=== PATIENT | male | born 1965 | race American Indian/Alaskan Native ===

== ENCOUNTER 2019-09-19 10:10 | Emergency (ER) | payer SELFPAY ==
[2019-09-19 10:17] VITALS: BP 146/95
--- NOTE | 2019-09-19 10:54 | XRay Report ---
RIGHT HAND, 3 VIEWS INDICATION: Hand injury, right third digit pain after injury last week. COMPARISON: None. IMPRESSION: There is mild soft tissue swelling of the third digit. Chronic posttraumatic or degenera tive changes are noted at the PIP joint of the third digit. No convincing acute fracture is identifie d. The remaining bones of the right hand are intact. The third and fourth metacarpals are shortened w hich is probably posttraumatic in nature. No erosive joint pathology is identified. Signer Name: Bao Castellano Jr, MD Signed: 09/19/2019 10:49 AM Workstation Name: [id number]
--- NOTE | 2019-09-19 11:08 | Emergency Department Report ---
HPI - General Chief Complaint: Extremity Injury, Upper Time Seen by Provider: 09/19/19 11:02 - HPI HPI: 53-year-old Monica male presents to the emergency department with complaint of pain and swelling to the right middle finger that occurred after the patient had a fall while going up the stairs last night. He fell with an outstretched hand and appears to have jammed his finger. He is right-hand dominant. He has not taken anything for her symptoms prior to presentation. There is some decreased range of motion of the fingers secondary to pain and swelling. He has a past medical history of hypertension and high cholesterol. ED Past Medical Hx - Past Medical History Previous Medical History?: Yes Hx Hypertension: Yes Additional medical history: high chol - Surgical History Past Surgical History?: No - Social History Smoking Status: Never Smoker Substance Use Type: None - Medications Home Medications: Home Medications Medication Instructions Recorded Confirmed Last Taken Type Fenofibric Acid (Choline) 135 mg PO QDAY 08/16/13 04/08/14 Unknown History [Trilipix] Lisinopril [Zestril] 10 mg PO QDAY 08/16/13 04/08/14 Unknown History Metoprolol [Lopressor] 25 mg PO BID 08/16/13 04/08/14 Unknown History traMADoL [Ultram] 50 mg PO Q6HR PRN #14 tablet 04/09/14 Unknown Rx Ibuprofen [Motrin 800 MG tab] 800 mg PO Q8HR PRN #20 tablet 09/19/19 Unknown Rx ED Review of Systems ROS: Stated complaint: R FINGER INJURY Other details as noted in HPI Comment: All other systems reviewed and negative Constitutional: denies: chills, fever Cardiovascular: edema (right middle finger) Musculoskeletal: joint swelling, arthralgia Skin: denies: rash, lesions Neurological: denies: numbness, paresthesias Physical Exam - Physical Exam Vital Signs: Vital Signs 09/19/19 10:15 Temperature 97.7 F Pulse Rate 112 H Respiratory 16 Rate Blood Pressure 146/95 [Left] O2 Sat by Pulse 95 Oximetry Physical Exam: GENERAL: The patient is well-developed well-nourished. HENT: Normocephalic. Atraumatic. Patient has moist mucous membranes. EYES: Extraocular motions are intact. NECK: Supple. Trachea is midline. ABDOMEN: There is no abdominal distention. SKIN: There is nonpitting swelling of the right middle finger. No erythema or lesions. NEURO: The patient is awake, alert, and oriented. The patient is cooperative. The patient has no focal neurologic deficits. Normal speech. MUSCULOSKELETAL: There is some tenderness to palpation along the right middle finger. Decreased range of motion of the right middle finger secondary to pain and swelling. Radial pulse +2 over 4 and capillary refill less than 2 seconds. ED Course Vital Signs 09/19/19 10:15 Temperature 97.7 F Pulse Rate 112 H Respiratory 16 Rate Blood Pressure 146/95 [Left] O2 Sat by Pulse 95 Oximetry ED Medical Decision Making - Radiology Data Radiology results: image reviewed interpreted by me: X-ray of the right middle finger does not show any fracture, dislocation or any acute process. - Medical Decision Making The patient fell and jammed his right middle finger. There is some swelling but there is no fracture or dislocation seen on x-ray. He is neurovascularly intact. The finger will be alex taped. Given anti-inflammatories and a referral for orthopedist. - Differential Diagnosis fracture, dislocation, contusion, sprain Critical Care Time: No Critical care attestation.: If time is entered above; I have spent that time in minutes in the direct care of this critically ill patient, excluding procedure time. ED Disposition Clinical Impression: Finger pain, right Contusion of middle finger Qualifiers: Encounter type: initial encounter Damage to nail status: without damage Laterality: right Qualified Code(s): S60.031A - Contusion of right middle finger without damage to nail, initial encounter Disposition: - TO HOME OR SELFCARE Is pt being admited?: No Condition: Stable Instructions: Arthralgia (ED) Additional Instructions: Please follow-up with a primary care physician in the next few days. I'm giving you a referral for a local orthopedist, Dr. Herrmann, to follow up regarding your finger pain. Return to the emergency Department with any worsening of your symptoms or any acute distress. Prescriptions: Ibuprofen [Motrin 800 MG tab] 800 mg PO Q8HR PRN #20 tablet PRN Reason: Pain , Severe (7-10) Referrals: ISABEL HERRMANN MD [Staff Physician] - 3-5 Days Forms: Work/School Release Form(ED) Time of Disposition: 11:08
== END 2019-09-19 11:45 | disposition home or self-care (01) ==
LOC: ED 10:10
DX: S60.031A Contusion of right middle finger without damage to nail, initial encounter (principal); I10 Essential (primary) hypertension; E78.5 Hyperlipidemia, unspecified; W22.8XXA Striking against or struck by other objects, initial encounter; Y93.89 Activity, other specified; Y92.89 Other specified places as the place of occurrence of the external cause; Y99.8 Other external cause status